=== PATIENT | male | born 1965 | race Caucasian/White ===

== ENCOUNTER 2016-10-28 04:33 | Emergency (ER) | payer OTHER ==
--- NOTE | ~2016-10-28 | ER ---
PATIENT'S NAME: [place] [facility] AGE: 51 Y [address] ROOM: [place] [address] LOCATION: [facility] ADMIT DATE: 10/28/2016 ER/Outpatient Report DISCHARGE DATE: 10/28/2016 FAMILY PHYSICIAN: , Unknown ATTENDING PHYSICIAN: Ferny Rouse TIME OF ARRIVAL: 0433 hours TIME OF EVALUATION: 0443 hours CHIEF COMPLAINT: Anxiety. HISTORY OF PRESENT ILLNESS: The patient is a 51-year-old male who presents to the emergency department today with chief complaint of anxiety. He reports he has sleep apnea; however, he has not been able to get set up for a sleep study. He reports he wakes up from sleep gasping for air. He then develops an anxiety attack. He reports he has an anxiety attack right now. He does have some chest tightness whenever this happens with some shortness of breath. No diaphoresis. No weakness. No nausea or vomiting. Denies any ripping or tearing sensation. Pain is currently 4-5/10 in severity. He reports he was just seen at [facility] a week and a half ago and had a complete workup that was negative including CT scan of the chest. PAST MEDICAL HISTORY: Obstructive sleep apnea, hypertension. PAST SURGICAL HISTORY: Back and neck fusion, tonsillectomy, uvulectomy, ulnar nerve transposition of left elbow. SOCIAL HISTORY: The patient denies any tobacco use. Reports very seldom alcohol use. Denies any illicit drug use. ALLERGIES: TO THE OLAF, DARVOCET, HYDROCODONE, DEMEROL. MEDICATIONS: Lisinopril, allergy eye drops. PRIMARY CARE DOCTOR: Dr. Johnson. [facility] 51 Y [address] ROOM: [place] [address] LOCATION: [facility] ADMIT DATE: 10/28/2016 ER/Outpatient Report DISCHARGE DATE: 10/28/2016 FAMILY PHYSICIAN: Physician, Unknown ATTENDING PHYSICIAN: Ferny Rouse REVIEW OF SYSTEMS: All systems are reviewed by myself are negative with the exception of those discussed in HPI and past medical history. PHYSICAL EXAMINATION: VITAL SIGNS: Weight 116.6 kg, blood pressure 180/99, pulse 81, respiratory rate 16, temperature 97.2, oxygen saturation 97% on room air. GENERAL: The patient is a 51-year-old male, appears stated age and anxious. HEENT: Normocephalic, atraumatic. Pupils are equal, round, and reactive to light. Extraocular motions are intact. Nares are patent bilaterally. TMs are clear. Oropharynx is clear. NECK: Supple. There is no nuchal rigidity. CARDIOVASCULAR: Regular rate and rhythm. No murmurs, rubs, or gallops. LUNGS: Clear to auscultation bilaterally. No wheezes, rales, or rhonchi. ABDOMEN: Soft, nontender, and nondistended. No rebound, rigidity, or guarding. MUSCULOSKELETAL: The patient moves all 4 extremities. SKIN: Warm and dry. There are rashes or lesions noted. LABORATORY DATA AND X-RAYS: EKG is obtained, is interpreted by myself, shows sinus rhythm with a rate of 80, normal axis, normal interval. No ST elevation or ST depression. T-wave inversions. Two-view chest x-ray shows no acute process. CBC is normal. Coags are normal. CMP is normal. LFTs are normal. Mag is normal. Cardiac enzymes are normal. ProBNP is less than 30. IMPRESSION: 1. Chest pain. 2. Anxiety. 3. Initial visit. EMERGENCY DEPARTMENT COURSE: The patient was brought back to the examination room. Seen and evaluated by myself. IV is established. Laboratory analysis and imaging are obtained as described above. The patient is given 1 mg of Ativan. Workup is unremarkable. The patient does feel improved, but not quite to 100%. He is given another milligram of Ativan. I have discussed results with the patient. I do feel he is safe for outpatient evaluation at this time. I have discussed obtaining his sleep study. He does report he is working with the [employer] attempting to get this accomplished. I have discussed return to care instructions including worsening symptoms or any other concerns to return to the emergency department as soon as possible. The patient is agreeable without further questions at this time. DISPOSITION: The patient was discharged home in good condition. PATIENT'S NAME: NAGI VALDOVINOS [facility] AGE: 51 Y [address] ROOM: [place] [address] LOCATION: ED ADMIT DATE: 10/28/2016 ER/Outpatient Report DISCHARGE DATE: 10/28/2016 FAMILY PHYSICIAN: Physician, Catherine ATTENDING PHYSICIAN: Ferny Rouse DO PRINCE HOFFMAN/modl /[id number] d: 10/28/1658 t: 10/30/16 0636, OUTPATIENT REPORT
[~2016-10-28 04:33] MED LIST: DILAUDID 4MG4 MG PO; MEDROL4 MG PO; NORCO 5-325 MG1 TAB; NUCYNTA50 MG PO; PERCOCET 5-3251 EACH PO; TORADOL10 MG PO; TYLENOL PM EX-1 EACH PO; ULTRAM50 MG PO
[2016-10-28 05:08] LABS: BASOPHIL % 0.4 %; EOSINOPHIL # 0.4 K/uL (0.0-0.5); EOSINOPHIL % 4.4 %; HEMATOCRIT 48.8 % (37.0-53.0); HEMOGLOBIN 16.9 g/dL (12.0-17.0); IMMATURE GRANULOCYTE % 0.3 %; LYMPHOCYTE # 1.5 K/uL (0.8-4.0); LYMPHOCYTE % 18.5 %; MCH 29.8 pg (27.0-34.0); MCHC 34.6 gm/dL (32.0-36.5); MCV 86.1 fl (83.0-98.0); MONOCYTE # 0.7 K/uL (0.0-1.0); MONOCYTE % 8.5 %; MPV 9.7 fl (9.4-12.4); NEUTROPHIL # (ANC) 5.4 K/uL (1.4-9.0); NEUTROPHIL % 67.9 %; NRBC % 0 /100WBC (0-0.00); PLATELET COUNT 198 K/uL (150-450); RBC 5.67 M/uL (4.00-6.00); RDW-CV 13.3 % (11.9-14.6)
[2016-10-28 05:16] LABS: INR - (THERAPEUTIC) 1.02 (0.92-1.07); PROTIME 10.7 SECONDS (9.8-11.4); PTT 29 SECONDS (25-32)
[2016-10-28 05:27] LABS: ALBUMIN 3.8 gm/dL (3.5-5.0); ALK PHOS 62 IU/L (33-138); ALT 48 IU/L (12-78); BLOOD UREA NITROGEN 16 mg/dL (6-24); CALCIUM 8.5 mg/dL (8.5-10.5); CHLORIDE 106 mMol/L (96-110); CO2 23 mMol/L (22-32); CPK 148 IU/L (35-332); CREATININE 1.1 mg/dL (0.6-1.3); SODIUM 137 mMol/L (135-145); TOTAL BILIRUBIN 0.3 mg/dL (0.0-1.5); TOTAL PROTEIN 7.3 g/dL (6.0-8.4)
[2016-10-28 05:28] LABS: AST 24 IU/L (10-40); MAGNESIUM 1.8 mg/dL (1.8-2.6)
== END 2016-10-28 05:56 | disposition disaster alternative care site (69) ==
LOC: GMED 04:33
PROVIDERS: Emergency Medicine
DX: F41.9 Anxiety disorder, unspecified (principal); R07.9 Chest pain, unspecified; I10 Essential (primary) hypertension; G47.33 Obstructive sleep apnea (adult) (pediatric); Z90.89 Acquired absence of other organs; Z98.890 Other specified postprocedural states; Z88.5 Allergy status to narcotic agent; Z88.1 Allergy status to other antibiotic agents; Z79.899 Other long term (current) drug therapy
CPT/HCPCS: J2060

== ENCOUNTER → 2016-11-27 | Outpatient (CLI) | payer OTHER ==
--- NOTE | ~2016-11-27 | PUL ---
PATIENT'S NAME: [facility]IN[facility]AD[facility] AGE: 51 Y [address] ROOM: [place] [address] [address]ATION: [facility] ADMIT DATE: 11/27/2016 Pulmonary DISCHARGE DATE: FAMILY PHYSICIAN: Ajay Johnson MD ATTENDING PHYSICIAN: Yen Camacho NAME OF PROCEDURE: Sleep Study PROCEDURE DATE: 11/27/16 TECH: LINN Begum TEST #: [facility] [place] [id number] TECHNICAL PARAMETERS: The patient was studied using [employer] 10/20 measuring system. While the patient was studied, there was continuous monitoring of EEG (8 leads), EOG (2 leads), EKG (3 leads), submental EMG (3 leads), tibial (4 leads), respiratory inductive plethysmography (RIP) for thoracic and abdominal effort, oral and nasal airflow with a thermocouple and pressure transducer, and oximetry. The automated access systems technician also performed visual and auditory observations noting things like body position, patient's status, breath sounds, artifact, snoring level and patient comments. Continuous sound was monitored using a 2-way speaker system and video monitoring was performed using an infrared camera. Review of the entire study was performed epoch by epoch utilizing a single epoch and multiple epoch capability sleep system. MEDICAL HISTORY: The patient is a 51-year-old overweight male with daytime sleepiness and snoring. He has a prior history of obstructive sleep apnea. SLEEP STAGE SUMMARY: The patient was studied for 468 minutes of which he slept 348 minutes. Fell asleep in 39 minutes and slept for 74% of the night. Sleep architecture revealed a decline in slow wave sleep. RESPIRATORY SUMMARY: Oxygen saturations ranged from 85-94%. Prior to initiating CPAP there were 8 apneas and 59 hypopneas for an apnea/hypopnea index severely elevated at 33 events per hour. CPAP was initiated and titrated to 9 cm with good control of the respiratory events. EKG SUMMARY: No significant dysrhythmias were noted. LIMB MOVEMENT SUMMARY: Occasional periodic limb movements were noted. These are not likely clinically relevant. SUMMARY: Severe obstructive sleep apnea responsive to CPAP at 9 cm. [facility] 51 [facility] [address] ROOM: [place] [address] LOCATION: [facility] ADMIT DATE: 11/27/2016 Pulmonary DISCHARGE DATE: FAMILY PHYSICIAN: Ajay Johnson MD ATTENDING PHYSICIAN: Yen Camacho PLAN: Suggest CPAP at 9 cm. The patient will receive results from the ordering provider. MD UTE FIGUEREDO/ /[id number] dtt: 12/16/16 0756 , Mansoor Blue. dtd: 12/02/16 1544
== END | disposition disaster alternative care site (69) ==
LOC: GSLP 20:46
DX: G47.33 Obstructive sleep apnea (adult) (pediatric) (principal)